=== PATIENT | male | born 1960 | race Caucasian/White ===

== ENCOUNTER 2020-03-18 13:36 | Inpatient (IN) | payer OTHER ==
[~2020-03-18] VITALS: Ht 188 cm; Wt 149.7 kg
[2020-03-18] VITALS (12 sets, daily range): BP systolic 117–146; BP diastolic 82–99
[2020-03-18 14:08] LABS: ABSOLUTE NEUTROPHILS 5.6 thou/uL (1.4-8.2); BASOPHILS 0.4 % (0.0-2.0); EOSINOPHILS 2.4 % (0.0-3.0); HEMATOCRIT 45.7 % (42.0-52.0); HEMOGLOBIN 15.4 gm/dL (14.0-18.0); LYMPHOCYTES 19.2 % (24.0-44.0); MCH 32.2 pg (26.0-34.0); MCHC 33.7 g/dL (28.0-37.0); MCV 95.5 fL (80.0-100.0); MONOCYTES 7.1 % (1.0-8.0); PLATELET COUNT 156 thou/uL (150-400); POLYS 70.9 % (36.0-66.0); RBC 4.79 mil/uL (4.50-6.00); RDW 13.5 % (10.5-14.5); WBC 7.9 thou/uL (4.0-11.0)
[2020-03-18 14:18] LABS: ANION GAP 7 mmol/L (7-16); BUN 21 mg/dL (7-18); CALCIUM 9.3 mg/dL (8.5-10.1); CHLORIDE 102 mmol/L (98-107); CO2 30 mmol/L (21-32); GLUCOSE 144 mg/dL (74-106); POTASSIUM 3.6 mmol/L (3.5-5.1); SODIUM 139 mmol/L (136-145)
--- NOTE | 2020-03-18 14:24 | EKG ---
[address] [employer] [place] [address] ELECTROCARDIOGRAM REPORT Name: EDWIN ZARATE Room #: PRE M.R.#: [id number] Admission: Attend Phys: Discharge: Date of : 56 Report #: [id number] [facility] ED Test Date: 2020-03-18 Test Time: 13:48:22 Pat Name: EDWIN ZARATE Department: Room: Gender: Facilities Technician: GONSALO : 1960 Requested By: Ramo Luther Order Number: [id number] MD: Onur Denton Measurements Intervals [place] Rate: 73 P: 35 UT: 204 QRS: -66 QRSD: 107 T: 97 QT: 397 QTc: 438 Interpretive Statements Sinus rhythm Atrial premature complex Left anterior fascicular block Abnormal R-wave progression, late transition Compared to ECG 01/17/2009 17:22:32 Atrial premature complex(es) now present Left anterior fascicular block now present Early repolarization now present Electronically Signed On 03-18-2020 14:24:16 SANITARIAN INSPECTOR by Onur Denton [email or web address] <ELECTRONICALLY SIGNED> By: Onur Denton MD, [facility] 03/18/20 1424 1348 1348 Onur Denton MD, FAC /EPI
[2020-03-18 14:25] LABS: D-DIMER 0.58 ug/mLFEU (0.19-0.50); INR 1.1; PROTIME 10.8 Seconds (9.3-11.4)
--- NOTE | 2020-03-18 14:26 | NUR ---
PT'S SISTER ZACHARY AGUILADON [phone]
[2020-03-18 14:28] LABS: ALBUMIN 3.6 g/dL (3.4-5.0); SGOT 37 U/L (15-37); SGPT 56 U/L (16-63); TOTAL BILIRUBIN 0.7 mg/dL (0.2-1.0); TOTAL PROTEIN 6.7 g/dL (6.4-8.2); TROPONIN-I <0.06 ng/mL (<0.06)
[2020-03-18 16:07] LABS: FOLIC ACID 18.2 ng/mL (8.6-58.9)
--- NOTE | 2020-03-18 17:16 | CATHLAB ---
[facility] [address] [address] INVASIVE PROCEDURE REPORT Name: EDWIN ZARATE Room #: 239-P ADM IN M.R.#: [id number] Admission: 03/18/20 Attend Phys: Edouard Romero MD Discharge: Date of : 56 Report #: [id number] THIS REPORT FOR: cc: FAM - Family physician unknown FAM - Family physician unknown Lokesh Segovia MD [facility] ~ APPROVED REPORT Study performed: 03/18/2020 13:59:48 Patient Details Patient Status: In-Patient Room #: The patient is a 60 year-old male Event Personnel Lokesh Segovia Lining Marker, Jessica Meza Monitor, AwildaLaurence ann RTR Scrub, Odessa Almeida RN RN, Abhijit Carrillo RN RN, Sarah Casas RN, Cassandra Montgomery RTR Scrub Procedures Performed Art Access - R femoral artery* 09908 Initial Mod Sed Same Phys/QHP Gr5y 122549 15327 Mod Sed Same Phys/QHP Ea 040964 Left Heart Cath w/or w/o Coronaries 3169622 [facility] Cardio-Pulmonary Resuscitation 1365462 CPR LEOBARDO Revasc AMI Total/Sub Single CIRC C9606 AMIREVSING Hemostasis w/ Mynx Indication STEMI Risk Factors Dysplipidemia Obesity, Family History, Coronary Artery DiseaseHypertension Previous Procedures/Diagnoses Previous [place] Procedure Narrative The patient was brought emergently to the Cardiac Catheterization Laboratory and was prepped and draped in a sterile manner. The Right Groin^ was infiltrated with 1% Lidocaine subcutaneous anesthesia. A PINNACLE 6FR Sheath #[id number] sheath was inserted into the RFA^. Coronary angiography was performed using coronary diagnostic catheters. The right coronary system was accessed and visualized with [facility] [place] [address] [place] [address] INVASIVE PROCEDURE REPORT Name: EDWIN ZARATE Room #: 239-[facility].#: [id number] Admission: 03/18/20 Attend Phys: Edouard Romero MD Discharge: Date of : 56 Report #: [id number] a JR 4 catheter. The left coronary system was accessed and visualized with a JL 4 catheter. The left ventricle was accessed and visualized with a Pigtail catheter. Left ventricular/Aortic Valve gradient assessed via catheter pullback. Left ventriculogram was performed in TSE projection. Closure device was deployed with a 6 Fr Mynx. The patient tolerated the procedure well and there were no complications associated with the procedure. There was no hematoma. As he was being transferred from the emergency department to the Manager [place], Edwin developed ventricular fibrillation. Code B ACLS/CPR was immediately instituted. Intraoperative Conscious Sedation Sedation start time: 14:23 Case end Time: 15:26 Fentanyl 50 mcg Versed 1 mg Fluoro Time: 11.21 minutes Dose: DAP 10193.00 cGycm2 2461 mGy Contrast Type and Amount: Visipaque 290 ml Coronary Angiography The patient's coronary anatomy is left dominant. Diagnostic Cath Left Main Large, normal left main LAD Diffusely diseased mid and distal LAD. 85% stenosis in the proximal portion of the mid LAD Circumflex Occluded mid circumflex within a previously placed stent. The distal circumflex gave rise to the posterior descending which exhibited mild plaquing OM1 90% proximal OM branch stenosis OM2 Distally arising second marginal branch with mild plaquing Right Coronary Occluded right coronary with fairly extensive vvof-ew-eyfme collateralization Left Ventriculography The left ventricle is normal in size with abnormal contractility. The left ventricular ejection fraction is estimated to be 40-45%. Left ventricular wall motion abnormalities are present. There is no mitral insufficiency. Inferior wall hypokinesis, especially at the base Hemodynamics The aortic pressure is 120/93 mmHg with a mean of 106 mmHg. The left ventricular pressure is 143/18 mmHg with a mean of mmHg. The left [facility] [address] [place] [address] INVASIVE PROCEDURE REPORT Name: EDWIN ZARATE Room #: 239-[facility] ..#: [id number] Admission: 03/18/20 Attend Phys: Edouard Romero MD Discharge: Date of : 56 Report #: [id number] ventricular end diastolic pressure is 36 mmHg. PCI Technique Lesion Anticoagulation was achieved with Heparin, Integrilin. Patient was preloaded with Effient. Percutaneous coronary intervention was performed on the mid circumflex artery segment. The lesion stenosis prior to intervention was 100% with DANIELA 0 flow. A LAUNCHER 6FR EBU 3.5 #[id number] Guide Catheter was used to engage the left main ostium. A Luge Wire .014 x 182CM #[id number] Interventional Guidewire was used to cross the lesion. BALLOON DILATION A Balloon catheter Euphora RX 2.5 x 15 #[id number] was inserted and inflated up to 8.00atm for 32seconds. Repeat angiography revealed the following post-dilatation results: Moderate residual stenosis. Additional Inflation: 16.00atm for 22seconds. STENT DEPLOYMENT A drug-eluting stent RESOLUTE MATTIE RX 3.5 X 26 #[id number] was inserted and inflated up to 14.00atm for 30seconds. POST STENT DEPLOYMENT BALLOON DILATION A Balloon catheter TREK NC 3.5 X 15 #[id number] was inserted and inflated up to 18.00atm for 26seconds. Additional Inflation: 22.00atm for 27seconds. Additional Inflation: 22.00atm for 20seconds. Final angiography reveals 0 % stenosis with DANIELA 3 flow. PCI Technique Lesion 2 Percutaneous Coronary Intervention was performed on the first obtuse marginal branch segment. Patient was preloaded with Effient. The lesion stenosis prior to intervention was 90% with DANIELA 3 flow. A LAUNCHER 6FR EBU 3.5 #[id number] Guide Catheter was used to engage the left main ostium. A Luge Wire .014 x 182CM #[id number] Interventional Guidewire was used to cross the lesion. Balloon Dilation A Balloon catheter Euphora RX 2.5 x 15 #[id number] was inserted and inflated up to 6.00atm for 10seconds. Additional Inflation: 10.00atm for 22seconds. Stent Deployment A drug-eluting stent RESOLUTE MATTIE RX 2.5 X 18 #[id number] was inserted and inflated up to 12.00atm for 17seconds. Post Stent Deployment Balloon Dilation [facility] [address] [place] [address] INVASIVE PROCEDURE REPORT Name: EDWIN ZARATE Room #: 239-P ADM IN Willa#: [id number] Admission: 03/18/20 Attend Phys: Edouard Romero MD Discharge: Date of : 56 Report #: [id number] A Balloon catheter TREK NC RX 2.5 X 15 #[id number] was inserted and inflated up to 16.00atm for 33seconds. Final angiography reveals 0 % stenosis with DANIELA 3 flow. Conclusion 1. Moderate left ventricular dysfunction with inferior wall hypokinesis EF 40-45% 2. Normal left main 3. Diffuse sequential mid LAD disease 85%. Consider staged intervention 4. Occluded dominant mid circumflex, stented with 3.5 x 26mm Resolute stent 5. High grade OM1 stenosis, stented with 2.5 x 18mm Resolute stent 6. Occluded and collateralized right coronary artery <ELECTRONICALLY SIGNED> By: Lokesh Segovia MD, FACC 03/18/201715 15 15 Lokesh Segovia MD, FACC /INF
--- NOTE | 2020-03-18 17:31 | EKG ---
[address] [place] [address] ELECTROCARDIOGRAM REPORT Name: EDWIN ZARATE Room #: 239-P ADM IN M.R.#: [id number] Admission: 03/18/20 Attend Phys: Edouard Romero MD Discharge: Date of : 56 Report #: [id number] [facility] Test Date: 2020-03-18 Test Time: 17:27:07 Pat Name: EDWIN ZARATE Department: Room: 239 Gender: M Research Environmental Scientist: Norm VIVAS : 1960 Requested By: Lokesh Segovia Order Number: [id number] MD: Lokesh Segovia Measurements Intervals [place] Rate: 93 P: 49 SD: 200 QRS: -59 QRSD: 107 T: 34 QT: 377 QTc: 469 Interpretive Statements Sinus rhythm Left anterior fascicular block Abnormal R-wave progression, late transition Compared to ECG 03/18/2020 13:48:22 Atrial premature complex(es) no longer present Inferior repolarization abnormality no longer present Electronically Signed On 03-18-2020 17:31:16 PHOTOGRAPHIC DOUBLE by Lokesh Segovia [email or web address] <ELECTRONICALLY SIGNED> By: Lokesh Segovia MD, [facility] 03/18/20 1731 1727 172 oLkesh Segovia MD, [facility] /EPI
--- NOTE | 2020-03-18 19:57 | NUR ---
1550-RECEIVED PT FROM CV LAB VIA BED W CV CREW IN ATTENDANCE.--VW
[2020-03-18 22:20] LABS: MAGNESIUM 1.8 mg/dL (1.8-2.4); POTASSIUM 3.7 mmol/L (3.5-5.1)
[2020-03-19] VITALS (24 sets, daily range): BP systolic 117–153; BP diastolic 76–98
[2020-03-19] MEDS ORDERED: LOPRESSOR50 MG PO (02:51)
[2020-03-19] MEDS ORDERED: LISINOPRIL10 MG PO (02:52)
[2020-03-19] MEDS ORDERED: NORVASC 2.5 MG2.5 M1 PO (02:53)
[2020-03-19] MEDS ORDERED: LIPITOR10 MG PO (02:53)
[2020-03-19] MEDS ORDERED: HYDROCHLOROTHIA25 M2 PO (02:54)
[2020-03-19 04:06] LABS: GLYCOHEMOGLOBIN (HGB A1C) 5.5 % (4.8-5.6)
[2020-03-19 05:28] LABS: ABSOLUTE NEUTROPHILS 9.8 thou/uL (1.4-8.2); BASOPHILS 0.3 % (0.0-2.0); EOSINOPHILS 0.2 % (0.0-3.0); HEMATOCRIT 47.3 % (42.0-52.0); HEMOGLOBIN 15.7 gm/dL (14.0-18.0); LYMPHOCYTES 4.7 % (24.0-44.0); MCH 31.8 pg (26.0-34.0); MCHC 33.2 g/dL (28.0-37.0); MONOCYTES 2.2 % (1.0-8.0); PLATELET COUNT 148 thou/uL (150-400); POLYS 92.6 % (36.0-66.0); RBC 4.93 mil/uL (4.50-6.00); RDW 13.4 % (10.5-14.5); WBC 10.6 thou/uL (4.0-11.0)
[2020-03-19 06:07] LABS: ALBUMIN 3.4 g/dL (3.4-5.0); CALCIUM 8.5 mg/dL (8.5-10.1); CREATININE 1.1 mg/dL (0.7-1.3); DIRECT BILIRUBIN 0.2 mg/dL (<0.1-0.2); PHOSPHORUS 3.2 mg/dL (2.5-4.9); POTASSIUM 4.4 mmol/L (3.5-5.1); TOTAL BILIRUBIN 0.6 mg/dL (0.2-1.0); TOTAL PROTEIN 6.4 g/dL (6.4-8.2)
[2020-03-19 06:23] LABS: CHOLESTEROL 130 mg/dL (<200); HDL CHOLESTEROL 48 mg/dL (>40); LDL CHOLESTEROL 61 mg/dL (<100); TC:HDL 2.7 Ratio (Not establshd); TRIGLYCERIDE 108 mg/dL (<150); VLDL 22 mg/dL (<40)
[2020-03-19 06:34] LABS: SERUM ASSESSMENT Clear
--- NOTE | 2020-03-19 08:36 | NUR ---
pt sleeping ooff and on. Pt now aware of Covid positive status, and dr ordered remdisivir to be given. Pt teaching done on meds, and isolation protocol. Pt denies any covid symptoms. and denies any cardiac chest pain at this time. Cont plan of care
--- NOTE | 2020-03-19 09:35 | EKG ---
[place] [address] [facility] [place] [address] ELECTROCARDIOGRAM REPORT Name: EDWIN ZARATE Room #: 239-P ADM IN M.R.#: [id number] Admission: 03/18/20 Attend Phys: Edouard Romero MD Discharge: Date of : 56 Report #: [id number] [facility] Test Date: 2020-03-19 Test Time: 07:25:17 Pat Name: EDWIN ZARATE Department: Room: 239 P Gender: M Mail Processor: [place] : 1960 Requested By: Lokesh Segovia Order Number: [id number] MD: Onur Denton Measurements Intervals [place] Rate: 96 P: 44 SD: 189 QRS: -65 QRSD: 102 T: -7 QT: 379 QTc: 479 Interpretive Statements Sinus rhythm Abnormal R-wave progression, late transition Borderline T abnormalities, inferior leads Borderline prolonged QT interval Compared to ECG 03/18/2020 17:27:07 T-wave abnormality now present Electronically Signed On 03-19-2020 9:35:20 CULINARY ARTS INSTRUCTOR by Onur Denton [email or web address] <ELECTRONICALLY SIGNED> By: Onur Denton MD, [facility] 03/19/2035 4 4 Onur Denton MD, [facility] /EPI
--- NOTE | 2020-03-19 14:35 | EKG ---
[address] [place] [address] ELECTROCARDIOGRAM REPORT Name: EDWIN ZARATE Room #: 239-P ADM IN M.R.#: [id number] Admission: 03/18/20 Attend Phys: Edouard Romero MD Discharge: Date of : 56 Report #: [id number] [facility] Test Date: 2020-03-19 Test Time: 14:13:55 Pat Name: EDWIN ZARATE Department: Room: 239 P Gender: M General Warehouse Associate: Norm VIVAS : 1960 Requested By: Lokesh Segovia Order Number: [id number] MD: Shalom Carmona Measurements Intervals [place] Rate: 81 P: 48 VA: 188 QRS: -66 QRSD: 103 T: -37 QT: 390 QTc: 453 Interpretive Statements Sinus rhythm Left anterior fascicular block Abnormal R-wave progression, late transition Nonspecific T abnormalities, inferior leads Baseline wander in lead(s) V2 Electronically Signed On 03-19-2020 14:35:34 CHEMICAL INSTRUMENTATION OFFICER by Shalom Carmona [email or web address] <ELECTRONICALLY SIGNED> By: Shalom Carmona MD 03/19/20 1435 141 12 Shalmo Carmona MD /PAUL
--- NOTE | 2020-03-19 14:55 | NUR ---
Case opened to follow for support and dc planning. Pt is currently in the ICU in enhanced ISO for covid +. Pt admitted via the ER and had emergent cardiac cath with stenting. He has a hx of FL. Panel Coverer visited with the pt via his cell phone. CM role introduced and support provided. He notes he is updating his family via phone and his sister Hoda and tish Schmid are his emergency contacts. He does not have an AD/DPOA in place. He reports being indep and working prior to admission. He lives in his own home alone and drives. He does have ins in place and a pcp for f/u care at dc. He has no known covid contacts. Plans noted for remdesivir per ID and cardiology indicates possible LAD in a few weeks once he has recovered from covid. He denies any dc needs or concerns at this time. Support provided. Will follow along should dc needs arise.
--- NOTE | 2020-03-19 19:37 | NUR ---
PT PROGRESING TOWARDS DISCHARGE, SEEN TODAY BY AND CARDIOLOGY GROUP COMPLAINTS OF CHEST PAIN, HYDROCODONE WAS GIVEN PER ORDER. NON CARDIAC RELATED. RN SUSPICIOUS OF RHYTHM, EKG SHOWED NO CHANGE IN RHYTHM SINCE 399 EKG 03/19/20. SEEN BY PT, PT CLEARED PT TO AMBULATE ON OWN. ABLE TO TOLERATE PO WITHOUT NAUSEA/VOMITTING. HEALTHY URINE OUTPUT, NO CHANGES IN CARDIAC RHYTHM/VS. LUNG SOUNDS ARE CLEAR/DIM. PT WAS SEEN SLEEPING AND RESTING THROUGHOUT THE DAY. PT RECEIVED ORDER TO TRANSFER TO BY , RN NOTIFIED HOUSE SUP. SIGNING OFF NOW
--- NOTE | 2020-03-19 21:37 | HC ---
[facility] [place] [address] [place] [address] CONSULTATION Name: EDWIN ZARATE Room #: 239-P ADM IN M.R.#: [id number] Admission: 03/18/20 Attend Phys: Edouard Romero MD Discharge: Date of : 56 Report #: [id number] THIS REPORT FOR: cc: FAM - Family physician unknown FAM - Family physician unknown Dom Horn MD ~ DATE OF SERVICE: 03/18/2020 REASON FOR CONSULTATION: I was asked to evaluate concerning COVID-19 infection in the setting of acute LA. HISTORY OF PRESENT ILLNESS: The patient is a 60-year-old with morbid obesity, coronary artery disease, hypertension, and hyperlipidemia, who presented on 03/18/2020 with acute substernal chest pain. He was being evaluated and going to the director of cath lab when he had a cardiac arrest and required CPR, VFib requiring defibrillation x 3 and epinephrine given. He was then resuscitated and admitted to the director of cath lab for stenting of the mid circumflex and obtuse marginal. His ejection fraction was 40%-45%. Now, his chest pain has resolved, although he is tender in the anterior chest wall from his CPR. He reports no cough or sputum production. He has had no headache, loss of taste or smell. He did have some diarrhea yesterday that is resolved. He noted an upper respiratory tract infection approximately 3 weeks ago. This has resolved. He has had no prior history of pneumonia. He is a nonsmoker. On screening, his PCR was positive for COVID-19 with a cycle threshold of 29. The antigen was negative. He is obese. No reported history of diabetes. REVIEW OF SYSTEMS: A 14-point review of system was negative other than what has been described above. ALLERGIES: None known. MEDICATIONS: Metoprolol, lisinopril, atorvastatin, hydrochlorothiazide, currently on COVID-19 treatment protocol. PAST MEDICAL HISTORY: As noted above with coronary artery disease, appendectomy, hypertension, and hyperlipidemia. FAMILY HISTORY: Coronary artery disease. SOCIAL HISTORY: He is single, nonsmoker, no significant alcohol intake. 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 PHYSICAL EXAMINATION: VITAL SIGNS: He was afebrile and hemodynamically stable. [facility] [address] [place] [address] CONSULTATION Name: EDWIN ZARATE Room #: 239-P [facility] IN M.R.#: [id number] Admission: 03/18/20 Attend Phys: Edouard Romero MD Discharge: Date of : 56 Report #: [id number] GENERAL: He is alert, cooperative, pleasant, in no acute distress. SKIN: Few excoriations to his lower extremities. No palpable adenopathy. He was obese. EYES: Without scleral icterus. MOUTH: Without mucositis. NECK: Supple. LUNGS: Clear. HEART: Regular, without murmur, gallop, or rub. ABDOMEN: Soft, nontender, no hepatosplenomegaly or mass. EXTREMITIES: 1+ peripheral edema. GENITORECTAL: Not performed. No CVA tenderness or spinal column tenderness. NEUROLOGIC: Cranial nerves intact. Strength in upper and lower extremities was symmetric and within normal limits. Mood without anxiety or depression. LABORATORY STUDIES: Reviewed. Mild elevation in his liver function test was noted. Troponin of 35. COVID PCR was positive. Chest x-ray was clear. IMPRESSION: A 60-year-old with acute myocardial infarction, status post stenting; went into ventricular fibrillation and cardiac arrest requiring defibrillation and CPR, now with COVID-19 infection. I suspect it is contributing. He has hypoxia in the setting of his myocardial infarction and obstructive sleep apnea. He has underlying hypertension, hyperlipidemia, and obesity. Does have elevated blood glucose levels and likely diabetic, which has yet to be proven. RECOMMENDATIONS: We will continue with COVID-19 treatment program in isolation. Cardiovascular therapy for his LA. We will follow his laboratory studies including creatinine and liver function test. I would expect liver function to improve over the next day or two. Follow chest x-ray and oxygen requirements. <ELECTRONICALLY SIGNED> By: Dom Horn MD 03/19/20 2137 1241 7989 Dom Horn MD /nt
[2020-03-20] VITALS (20 sets, daily range): BP systolic 120–150; BP diastolic 77–106
[2020-03-20 05:09] LABS: D-DIMER 0.58 ug/mLFEU (0.19-0.50); FIBRINOGEN 300.6 mg/dL (210-360); INR 1.1; PROTIME 10.8 Seconds (9.3-11.4)
[2020-03-20 05:55] LABS: ABSOLUTE NEUTROPHILS 8.8 thou/uL (1.4-8.2); BASOPHILS 0.3 % (0.0-2.0); EOSINOPHILS 0.1 % (0.0-3.0); HEMATOCRIT 44.9 % (42.0-52.0); HEMOGLOBIN 14.9 gm/dL (14.0-18.0); LYMPHOCYTES 8.5 % (24.0-44.0); MCH 32.3 pg (26.0-34.0); MCHC 33.2 g/dL (28.0-37.0); MCV 97.3 fL (80.0-100.0); MONOCYTES 5.3 % (1.0-8.0); PLATELET COUNT 150 thou/uL (150-400); POLYS 85.8 % (36.0-66.0); RBC 4.61 mil/uL (4.50-6.00); RDW 13.1 % (10.5-14.5); WBC 10.3 thou/uL (4.0-11.0)
[2020-03-20 06:02] LABS: DIRECT BILIRUBIN 0.1 mg/dL (<0.1-0.2); PHOSPHORUS 2.8 mg/dL (2.5-4.9)
[2020-03-20 06:09] LABS: ALBUMIN 3.1 g/dL (3.4-5.0); CALCIUM 8.4 mg/dL (8.5-10.1); CREATININE 0.9 mg/dL (0.7-1.3); POTASSIUM 4.1 mmol/L (3.5-5.1); TOTAL BILIRUBIN 0.5 mg/dL (0.2-1.0); TOTAL PROTEIN 6.4 g/dL (6.4-8.2)
--- NOTE | 2020-03-20 07:34 | HC ---
[facility] [place] [address] CONSULTATION Name: EDWIN ZARATE Room #: 239-P [facility] IN .R.#: [id number] Admission: 03/18/20 Attend Phys: Edouard Romero MD Discharge: Date of : 56 Report #: [id number] THIS REPORT FOR: cc: FAM - Family physician unknown FAM - Family physician unknown Lokesh Segovia MD [facility] ~ DATE OF SERVICE: 03/18/2020 REASON FOR CONSULTATION: Chest pain. HISTORY OF PRESENT ILLNESS: The patient is a 60-year-old gentleman with a history of remote stenting of the circumflex coronary, around 10 years ago. His history includes hypertension and dyslipidemia. Now presents with midsternal chest tightness starting about 12:30pm. He reports this is reminiscent, although more severe to what he experienced prior to his stenting procedure many years ago. He denies orthopnea or paroxysmal nocturnal dyspnea. He has had mild diaphoresis. ALLERGIES: There are no known drug allergies. MEDICATIONS: Include metoprolol 200 daily, lisinopril, atorvastatin 40 daily, and hydrochlorothiazide 25 daily. PAST MEDICAL HISTORY: Medical records have been reviewed and include a history of coronary artery disease, remote appendectomy, and hypertension. SOCIAL HISTORY: He is retired from retail. He is a nonsmoker. FAMILY HISTORY: Notable for both parents with coronary artery disease. REVIEW OF SYSTEMS: All systems were negative except as that noted above. PHYSICAL EXAMINATION: GENERAL: Reveals an anxious gentleman with ongoing chest pain. VITAL SIGNS: Blood pressure is 130/70, heart rate of 73 and regular, respirations unlabored at 18. HEENT: There are neither xanthelasma, subcutaneous xanthomata, oral mucosal or digital cyanosis or kyphoscoliosis present. CHEST: Reveals distant, but equal breath sounds. CARDIAC: Reveals a regular rate and rhythm with normal S1, S2. ABDOMEN: Soft, obese, and nontender. EXTREMITIES: With 1+ pedal edema. Radial pulses are 2+. NEUROLOGIC: He is alert with a nonfocal exam. [facility] [address] [place] [address] CONSULTATION Name: EDWIN ZARATE Room #: 239-P [facility] IN M.R.#: [id number] Admission: 03/18/20 Attend Phys: Edouard Romero MD Discharge: Date of : 56 Report #: [id number] LABORATORY DATA: EKG, sinus rhythm with right ventricular conduction delay, left anterior hemiblock, inferior injury. IMPRESSION: 1. Inferior STEMI 2. Acute systolic heart failure 3. Possible COLLINS 4. Hypertension. 5. Dyslipidemia. 6. Coronary artery disease with remote circumflex coronary stenting. RECOMMENDATIONS: Urgent coronary angiography. The procedure was discussed in detail including its associated risks. After a thorough discussion of the procedure, its risks and alternatives and after answering his questions, he is agreeable to proceeding. 73cc time. coordinating care with ED, staff, nusing ; discussions with family (sister) by phone <ELECTRONICALLY SIGNED> By: Lokesh Segoiva MD, [facility] 03/20/20 0734 1419 1448 Lokesh Segovia MD, [facility] /nt
[2020-03-20] MEDS ORDERED: CLOPIDOGREL75 MG PO (08:08)
[2020-03-20] MEDS ORDERED: ASPIRIN325 PO (08:08)
[2020-03-20] MEDS ORDERED: LIPITOR40 MG PO (08:08)
--- NOTE | 2020-03-20 08:41 | EKG ---
[place] [address] [facility] [place] [address] ELECTROCARDIOGRAM REPORT Name: EDWIN ZARATE Room #: 239-P ADM IN M.R.#: [id number] Admission: 03/18/20 Attend Phys: Edouard Romero MD Discharge: Date of : 56 Report #: [id number] [facility] Test Date: 2020-03-20 Test Time: 07:28:25 Pat Name: EDWIN ZARATE Department: Room: 239 P Gender: M Asphalt Paver: [place] : 1960 Requested By: Lokesh Segovia Order Number: [id number] MD: Lokesh Segovia Measurements Intervals [place] Rate: 76 P: 35 CA: 180 QRS: -60 QRSD: 104 T: -27 QT: 408 QTc: 459 Interpretive Statements Sinus rhythm Left anterior fascicular block Right ventricular conduction delay Nonspecific T abnormalities, inferior leads Compared to ECG 03/19/2020 14:13:55 No significant change Electronically Signed On 03-20-2020 8:41:35 SHOT HOLE SHOOTER by Lokesh Segovia [email or web address] <ELECTRONICALLY SIGNED> By: Lokesh Segovia MD, [facility] 03/20/2041 7 7 Lokesh Segovia MD, [facility] /EPI
--- NOTE | 2020-03-20 16:36 | NUR ---
PATIENT STABLE THROUGH OUT THE DAY. UP ABMULATING INDEPENDENTLY IN ROOM. HTN NOTED, SCHEDULED BP MEDICAITONS GIVEN WITH IMPROVEMENT. PATIENT VOICED SOME DISCOMFORT TO STERNUM D/T CHEST COMPRESSIONS, PRN HYDROCODONE GIVEN WITH RELIEF. PLAN TO DISCHARGE TOMORROW.
[2020-03-21] VITALS: BP 144/94
[2020-03-21 05:49] LABS: ALBUMIN 3.1 g/dL (3.4-5.0); CALCIUM 8.4 mg/dL (8.5-10.1); CREATININE 0.9 mg/dL (0.7-1.3); DIRECT BILIRUBIN 0.1 mg/dL (<0.1-0.2); PHOSPHORUS 2.5 mg/dL (2.5-4.9); POTASSIUM 3.6 mmol/L (3.5-5.1); TOTAL BILIRUBIN 0.4 mg/dL (0.2-1.0); TOTAL PROTEIN 6.2 g/dL (6.4-8.2)
--- NOTE | 2020-03-21 06:42 | NUR ---
PT UP AD MARCELINA, VERY CAREFUL AND CONSCIENTIOUS OF LINES AND WALKWAYS. APPROPRIATE AND PLEASANT. WASHED UP INDEPENDENTLY, UP IN CHAIR UNTIL READY FOR BED THEN SLEPT OFF AND ON PER PT REPORT. THIS RN REITERATED TO PT THAT HE NEEDS TO BE SEEN FOR DESATURATION WITH SLEEP, NOTED SNORING WHILE IN ROOM. RA, WILFREDO, HOPES TO BE DC'D TODAY
[2020-03-21 11:23] VITALS: BP 170/101
[2020-03-21] MEDS ORDERED: VITAMIN D325 MC1 PO (11:26)
[2020-03-21] MEDS ORDERED: PREDNISONE 20 M20 M1 PO (11:26)
[2020-03-21] MEDS ORDERED: HYDROCODON-ACE1 EAC7 PO (11:26)
[2020-03-21] MEDS ORDERED: ACEROLA C500 MG PO (11:26)
[2020-03-21] MEDS ORDERED: ZINC SULFATE 2220 MG PO (11:26)
[2020-03-21 11:45] VITALS: BP 170/101
--- NOTE | 2020-03-21 12:56 | NUR ---
ON-GOING ASSESSMENT: CM REVIEWED CHART AND PT HAS ORDERS TO DISCHARGE HOME. PT HAS NO NEEDS FROM CM.
== END 2020-03-21 11:47 | disposition home or self-care (01) | DRG 246 ==
LOC: ER 13:36 → EROBS 14:35 → ICU 14:35
PROVIDERS: Emergency Medicine; Internal Medicine; Nurse Practitioner; Specialist; ADMIT Internal Medicine; ATTEND Internal Medicine
DX: I21.19 ST elevation (STEMI) myocardial infarction involving other coronary artery of inferior wall (principal); U07.1 COVID-19; I46.9 Cardiac arrest, cause unspecified; I50.21 Acute systolic (congestive) heart failure; I49.01 Ventricular fibrillation; J12.82 Pneumonia due to coronavirus disease 2019; Z68.41 Body mass index [BMI] 40.0-44.9, adult; I48.91 Unspecified atrial fibrillation; I11.0 Hypertensive heart disease with heart failure; G47.33 Obstructive sleep apnea (adult) (pediatric); I25.5 Ischemic cardiomyopathy; E66.01 Morbid (severe) obesity due to excess calories; E78.5 Hyperlipidemia, unspecified; I25.110 Atherosclerotic heart disease of native coronary artery with unstable angina pectoris; I24.9 Acute ischemic heart disease, unspecified; Z79.01 Long term (current) use of anticoagulants; Z90.49 Acquired absence of other specified parts of digestive tract; I25.2 Old myocardial infarction; Z86.73 Personal history of transient ischemic attack (TIA), and cerebral infarction without residual deficits; Z95.5 Presence of coronary angioplasty implant and graft; Z79.899 Other long term (current) drug therapy; Z23 Encounter for immunization
CPT/HCPCS: 10078

== ENCOUNTER 2020-05-08 06:23 | Observation (INO) | payer OTHER ==
[~2020-05-08] VITALS: Ht 185.4 cm; Wt 154.2 kg
[~2020-05-08 06:23] MED LIST: ACEROLA C500 MG PO; ASPIRIN325 PO; CLOPIDOGREL75 MG PO; HYDROCHLOROTHIA25 M2 PO; HYDROCODON-ACE1 EAC7 PO; LIPITOR10 MG PO; LIPITOR40 MG PO; LISINOPRIL10 MG PO; LOPRESSOR50 MG PO; NORVASC 2.5 MG2.5 M1 PO; PREDNISONE 20 M20 M1 PO; VITAMIN D325 MC1 PO; ZINC SULFATE 2220 MG PO
[2020-05-08 07:16] VITALS: BP 152/106
[2020-05-08] MEDS ORDERED: TORSEMIDE20 MG PO (07:25)
[2020-05-08] MEDS ORDERED: POTASSIUM20 PO (07:26)
[2020-05-08] MEDS ORDERED: PLAVIX 75 MG TA75 MG PO (07:26)
[2020-05-08] MEDS ORDERED: EFFIENT10 MG PO (08:59)
--- NOTE | 2020-05-08 10:08 | NUR ---
PT TAKEN TO RM 211 ON CART BY PARVIN
--- NOTE | 2020-05-08 10:19 | CATHLAB ---
[facility] [place] [address] INVASIVE PROCEDURE REPORT Name: EDWIN ZARATE Room #: 211-P [facility] Robert M.Freddy#: [id number] Admission: 05/08/20 Attend Phys: Lokesh Segovia MD, Discharge: Date of : 56 Report #: [id number] THIS REPORT FOR: cc: Vernon Saleem James A. DO Lundgren, Craig H. MD [facility] ~ APPROVED REPORT Study performed: 05/08/2020 07:45:11 Patient Details Patient Status: Out-Patient Room #: The patient is a 60 year-old male Event Personnel Lokesh Segovia Industrial Sales Representative, Daisy Liriano RN RN, Hoda Ortiz RTR, PATENT PARALEGAL Monitor, Kathy Cardenas Procedures Performed Art Access - R femoral artery* LEOBARDO Place w/wo Plasty Single LAD [id number] 17988 Initial Mod Sed Same Phys/QHP Gr5y 433918 67801 Mod Sed Same Phys/QHP Ea 366574 Hemostasis w/ Mynx Indication Chest pain Procedure Narrative The patient was brought electively to the Cardiac Catheterization Laboratory and was prepped and draped in a sterile manner. The RFG^ was infiltrated with 1% Lidocaine subcutaneous anesthesia. A SHEATH BRITE-TIP 6F X 11CM ([id number]) sheath was inserted into the RFA^. Coronary angiography was performed using coronary diagnostic catheters. There was no hematoma. Intraoperative Conscious Sedation Sedation start time: 075 Case end Time: 08 Fentanyl 100 mcg Versed 2 mg Fluoro Time: 10.20 minutes Dose: DAP 09504.00 cGycm2 2373 mGy Contrast Type and Amount: Omnipaque 200 ml Coronary Angiography [facility] [employer] [place] [address] INVASIVE PROCEDURE REPORT Name: EDWIN ZARATE Room #: 211-P [facility] [place] [facility]#: [id number] Admission: 05/08/20 Attend Phys: Lokesh Segovia, Discharge: Date of : 56 Report #: [id number] The patient's coronary anatomy is left dominant. Diagnostic Cath Left Main Normal left main LAD Long variable 70-85% stenosis occupying most of the proximal and mid portions of the LAD. Diagonal 1 Moderate sized first diagonal, normal Diagonal 2 Small second diagonal branch, angiographically normal Circumflex Dominant circumflex with widely patent mid vessel stent. OM1 Widely patent OM1 ostial stent OM2 Distal OM 2, angiographically normal L PDA Angiographically normal Hemodynamics The aortic pressure is 145/90 mmHg with a mean of 113 mmHg. PCI Technique Lesion Anticoagulation was achieved with Heparin, Integrilin. Patient was preloaded with Effient. Percutaneous coronary intervention was performed on the proximal to mid left anterior descending artery segment. The lesion stenosis prior to intervention was 85% with DANIELA 3 flow. A LAUNCHER 6FR EBU 3.75 #[id number] Guide Catheter was used to engage the LAD ostium. A Luge Wire .014 x 182CM #[id number] Interventional Guidewire was used to cross the lesion. BALLOON DILATION A Balloon catheter Euphora RX 2.25 x 15 #[id number] was inserted and inflated up to 14.00atm for 30seconds. Additional Inflation: 14.00atm for 28seconds. Additional Inflation: 14.00atm for 29seconds. ADDL.INFL.: 16 nimo for 24 sec/min, 18 nimo for 30 sec/min. STENT DEPLOYMENT A drug-eluting stent RESOLUTE AGAPITO RX 2.5 X 38 #[id number] was inserted and inflated up to 15.00atm for 35seconds. Prox. stent Resolute Agapito 2.75mm x 15mm deployed at 14 nimo for 23 sec/min. POST STENT DEPLOYMENT BALLOON DILATION A Balloon catheter Euphora NC RX 2.75 x 15 #[id number] was inserted and inflated up to 12.00atm for 30seconds. Additional Inflation: 18.00atm for 20seconds. Additional Inflation: 20.00atm for 22seconds. ADDL.INFL. TO THE PROX PORTION OF STENTS: 22 NIMO FOR 21 SEC/MIN AND 25 NIMO FOR 20 SEC (TWICE) Final angiography reveals 0 % stenosis with DANIELA 3 flow. [facility] [address] [place] [address] INVASIVE PROCEDURE REPORT Name: ELLIOTEDWIN Room #: 211-P [facility] IN M.R.#: [id number] Admission: 05/08/20 Attend Phys: Lokesh Segovia, Discharge: Date of : 56 Report #: [id number] PCI Technique Lesion 2 Percutaneous Coronary Intervention was performed on the proximal left anterior descending artery segment. Conclusion 1. Normal left main 2. Severe variable, long proximal to mid LAD stenosis stented with a 2.75 x 15 mm followed by a 2.5 x 38 mm Resolute stents, postdilated to close to 3.0 mm 3. Dominant circumflex with widely patent mid vessel and OM1 stents (Placed 03/18/20) 4. Small nondominantl right coronary <ELECTRONICALLY SIGNED> By: Lokesh Segovia MD, [facility] 05/08/20 1019 1019 1019 Lokesh Segovia MD, FAC /INF
[2020-05-08 11:00] VITALS: BP 154/97
[2020-05-08 11:15] VITALS: BP 154/97
[2020-05-08 16:10] VITALS: BP 145/95
--- NOTE | 2020-05-08 18:30 | NUR ---
PT ADMIT TO THE FLOOR POST CATH AND STENT PLACEMENT, RIGHT GROIN AREA CLEAN DRY AND INTACT NO HEMATOMA NOTED AT THIS TIME, PT DENIES PAIN. AT 100% OF DINNER. VS WNL, NO SIGNS OF DISTRESS AT THIS TIME, PT SITTING IN CHAIR AND AMBULATED WELL AFTER 3HR BED REST. NO COMPLICATION THROUGHOUT THE SHIFT, CALL LIGHT IN REACH AND PT DENIES ANY PAIN OR DICOMFORT.
[2020-05-08 20:30] VITALS: BP 148/97
[2020-05-09 00:45] VITALS: BP 142/92
[2020-05-09 04:45] VITALS: BP 155/113
[2020-05-09 05:15] LABS: HEMATOCRIT 40.5 % (42.0-52.0); HEMOGLOBIN 13.6 gm/dL (14.0-18.0); MCHC 33.7 g/dL (28.0-37.0); RBC 4.26 mil/uL (4.50-6.00); WBC 6.6 thou/uL (4.0-11.0)
[2020-05-09 05:37] LABS: ALBUMIN 3.2 g/dL (3.4-5.0); ANION GAP 8 mmol/L (7-16); BUN 14 mg/dL (7-18); CALCIUM 8.2 mg/dL (8.5-10.1); CHLORIDE 105 mmol/L (98-107); CHOLESTEROL 98 mg/dL (<200); CO2 28 mmol/L (21-32); CREATININE 0.9 mg/dL (0.7-1.3); GLUCOSE 97 mg/dL (74-106); HDL CHOLESTEROL 36 mg/dL (>40); LDL CHOLESTEROL 38 mg/dL (<100); POTASSIUM 3.4 mmol/L (3.5-5.1); SGOT 25 U/L (15-37); SGPT 34 U/L (30-65); SODIUM 141 mmol/L (136-145); TC:HDL 2.7 Ratio (Not establshd); TOTAL PROTEIN 6.2 g/dL (6.4-8.2); TRIGLYCERIDE 121 mg/dL (<150); TROPONIN-I 0.12 ng/mL (<0.06); VLDL 24 mg/dL (<40)
[2020-05-09 05:55] LABS: SERUM ASSESSMENT Clear
--- NOTE | 2020-05-09 06:21 | NUR ---
ASSUMED CARE OF PATIENT AT CHANGE OF SHIFT; SR/BBB ON THE MONITOR; NO C/O CHEST PAIN; RT GROIN SITE C/D/I WITH NO HEMATOMA PRESENT; IVF FINISHED AT 0300 AND PATIENT CURRENTLY SALINE-LOCKED; UP AD MARCELINA/STEADY ON AMBULATION; PATIENT PROVIDED PRN SLEEP MED AT HS WITH LITTLE EFFECT; PATIENT REPORTED ONLY NAPPING FOR SHORT PERIODS; PLAN IS FOR PATIENT TO D/C TO HOME TODAY WITH ARRANGEMENTS FOR OUTPATIENT CARDIAC REHAB; WILL CONTINUE TO MONITOR AND FOLLOW POC.
--- NOTE | 2020-05-09 07:10 | EKG ---
[place] [address] [facility] [place] [address] ELECTROCARDIOGRAM REPORT Name: EDWIN ZARATE Room #: 211-[facility] M.R.#: [id number] Admission: 05/08/20 Attend Phys: Lokesh Segovia MD, Discharge: Date of : 56 Report #: [id number] [facility] Test Date: 2020-05-08 Test Time: 09:11:11 Pat Name: EDWIN ZARATE Department: Room: 211 Gender: M Hedis Specialist: SBULJAYNA : 1960 Requested By: Lokesh Segovia Order Number: [id number] : Onur Denton Measurements Intervals [place] Rate: 83 P: 41 DE: 185 QRS: -69 QRSD: 112 T: -2 QT: 393 QTc: 462 Interpretive Statements Sinus rhythm Left anterior fascicular block RSR' in V1 or V2, right VCD or RVH Compared to ECG 03/20/2020 07:28:25 Right ventricular hypertrophy now present RSR' in V1 or V2 now present T-wave abnormality no longer present Electronically Signed On 05-09-2020 7:10:23 ORAL HYGIENIST by Onur Denton [email or web address] <ELECTRONICALLY SIGNED> By: Onur Denton MD, [facility] 05/09/20 0710 0 0 Onur Denton MD, [facility] /EPI
[2020-05-09 07:16] VITALS: BP 153/89
--- NOTE | 2020-05-09 07:36 | EKG ---
[place] [address] [facility] [place] [address] ELECTROCARDIOGRAM REPORT Name: EDWIN ZARATE Room #: 211-P [facility] M.R.#: [id number] Admission: 05/08/20 Attend Phys: Lokesh Segovia MD, Discharge: Date of : 56 Report #: [id number] [facility] Test Date: 2020-05-09 Test Time: 07:25:22 Pat Name: EDWIN ZARATE Department: Room: 211 P Gender: M Non Destructive Evaluation Manager: [place] : 1960 Requested By: Lokesh Segovia Order Number: [id number] MD: Lokesh Segovia Measurements Intervals [place] Rate: 96 P: 25 TX: 188 QRS: -60 QRSD: 107 T: -1 QT: 366 QTc: 463 Interpretive Statements Sinus rhythm Left anterior fascicular block Abnormal R-wave progression, early transition Borderline T abnormalities, inferior leads Compared to ECG 05/08/2020 09:11:11 No significant changes found Electronically Signed On 05-09-2020 7:36:16 FOUNDATION DIGGER by Lokesh Segovia [email or web address] <ELECTRONICALLY SIGNED> By: Lokesh Segovia MD, [facility] 05/09/20 0736 4 4 Lokesh Segovia MD, [facility] /EPI
[2020-05-09 08:17] VITALS: BP 153/89
[2020-05-09 10:27] VITALS: BP 153/89
--- NOTE | 2020-05-12 17:19 | D ---
[facility] [place] [address] [place] [address] DISCHARGE SUMMARY Name: EDWIN ZARATE Room #: [facility] Robert Crouch#: [id number] Admission: 05/08/20 Attend Phys: Lokesh Segovia MD, Discharge: 05/09/20 Date of : 56 Report #: [id number] THIS REPORT FOR: cc: Vernon Saleem James A. DO Lundgren, Craig H. MD [facility] ~ DISCHARGE DIAGNOSES: 1. Unstable angina. 2. Stenting of the proximal to mid LAD (2.75 x 15 mm Resolute stent followed by 2.5 x 36 mm Resolute stent, postdilated to 2.75-3.0 mm with a noncompliant balloon). 3. Mild ischemic cardiomyopathy. 4. Hypertension. 5. Dyslipidemia. 6. Probable sleep apnea. 7. Elevated blood sugar without prior diagnosis of diabetes. 8. Recent COVID-19. 9. Diastolic heart failure, chronic. HISTORY OF PRESENT ILLNESS: For the complete details of the history of present illness, see dictated history and physical. Briefly, the patient presented with an acute inferolateral infarct on 03/18/2020. This was complicated by a VF arrest. He underwent a successful stenting of this vessel with a 3.5 x 26 mm Resolute stent and stenting of a high-grade OM1 stenosis with a 2.5 x 18 mm stent. Severe high-grade LAD disease was identified for which a planned intervention is now undertaken. HOSPITAL COURSE: The patient presented and underwent coronary angiography. This demonstrated widely patent circumflex and OM1 stents. The right coronary was small and nondominant and not reinjected. The proximal to mid LAD exhibited a severe long variable 70-85% stenosis. This occupied most of the proximal and mid portions of the LAD. This was successfully stented with a 2.5 x 36 mm Resolute stent in the mid portion of the LAD and then in sequence proximally a 2.75 x 15 mm stent. All stents were dilated to at least 2.75 mm. The proximal segment, postdilated to 3.0 mm with a noncompliant balloon. He was treated with aspirin, Effient, and Integrilin in the periprocedural setting. Interestingly, he had loss of taste with clopidogrel years ago, although had noticed this until recently. For this reason, his clopidogrel was changed to prasugrel 10 mg daily. Medicines were reconciled. DISCHARGE MEDICATIONS: Include amlodipine 10 mg daily, aspirin 325 mg daily, atorvastatin 40 mg daily, Effient 10 mg daily, lisinopril 40 mg daily, metoprolol succinate 200 mg daily, potassium 20 mEq daily, torsemide 20 mg daily[address] [address] DISCHARGE SUMMARY Name: EDWIN ZARATE Room #: 211-P [facility]#: [id number] Admission: 05/08/20 Attend Phys: Lokesh Segovia MD, Discharge: 05/09/20 Date of : 56 Report #: [id number] DISCHARGE DIET: Low fat, low cholesterol. DISCHARGE ACTIVITY: As instructed post-catheterization arrangements were made for outpatient cardiac rehabilitation. Follow up with myself in 4-6 weeks, followup with Dr. Saleem as previously arranged. DISCHARGE CONDITION: Stable and improved. <ELECTRONICALLY SIGNED> By: Lokesh Segovia MD, [facility]ACC 05/12/20 1719 0908 0924 Lokesh Segovia MD, FAC /nt
== END 2020-05-09 11:40 | disposition home or self-care (01) ==
LOC: CATH 06:23 → 2N 10:16 → CATH 12:15 → 2N 05-09 11:40
PROVIDERS: ADMIT Internal Medicine; ATTEND Internal Medicine
DX: I25.110 Atherosclerotic heart disease of native coronary artery with unstable angina pectoris (principal); I25.5 Ischemic cardiomyopathy; I11.0 Hypertensive heart disease with heart failure; I50.32 Chronic diastolic (congestive) heart failure; E78.5 Hyperlipidemia, unspecified; R73.9 Hyperglycemia, unspecified; Z79.82 Long term (current) use of aspirin; Z79.899 Other long term (current) drug therapy; Z86.16 Personal history of COVID-19

== ENCOUNTER → 2021-02-02 | Outpatient (CLI) | payer OTHER ==
[~2021-02-02] MED LIST changes: +EFFIENT10 MG PO; +PLAVIX 75 MG TA75 MG PO; +POTASSIUM20 PO; +TORSEMIDE20 MG PO
== END ==
LOC: SJCVCIMAG 07:21
PROVIDERS: ATTEND Internal Medicine
DX: I65.23 Occlusion and stenosis of bilateral carotid arteries (principal); I08.8 Other rheumatic multiple valve diseases; I25.10 Atherosclerotic heart disease of native coronary artery without angina pectoris; I10 Essential (primary) hypertension; I42.9 Cardiomyopathy, unspecified; E78.5 Hyperlipidemia, unspecified; R01.1 Cardiac murmur, unspecified; Z82.49 Family history of ischemic heart disease and other diseases of the circulatory system